=== PATIENT | male | born 2005 | race Caucasian/White ===

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

== ENCOUNTER 2025-04-03 08:25 | Emergency (ER) | payer OTHER, SELFPAY ==
--- NOTE | ~2025-04-03 | XR_ITS ---
3 VIEWS NASAL BONES Ordering provider: Ashley Verma APRN History: . trauma . Comparison: None. FINDINGS: No acute fracture. The nasal septum is midline. Soft tissues are normal. IMPRESSION: NO NASAL BONE FRACTURE. Reviewed, dictated and finalized at location A. IMPRESSION: NO NASAL BONE FRACTURE.
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
[2025-04-03 08:37] VITALS: BP 118/53; PULSE 55; RESP 18; TEMP 36.5; O2SAT 100
== END 2025-04-03 09:34 | disposition home or self-care (01) ==
PROVIDERS: Emergency Provider Nurse Practitioner Family; Referring Provider Family Medicine
DX: S00.33XA Contusion of nose, initial encounter (principal); W50.0XXA Accidental hit or strike by another person, initial encounter; Y93.16 Activity, rowing, canoeing, kayaking, rafting and tubing
CPT/HCPCS: 70160; 99203; G0463